=== PATIENT | female | born 1995 | race Caucasian/White ===

== ENCOUNTER 2021-06-19 14:16 | Emergency (ER) | payer MEDICAID, SELFPAY ==
[2021-06-20 14:54] LABS: SARS-CoV-2 PCR by NAA Not Detected (NotDetected)
== END 2021-06-19 15:25 | disposition home or self-care (01) ==
LOC: NAV ERS 14:16
DX: R09.81 Nasal congestion (principal); Z20.822 Contact with and (suspected) exposure to COVID-19
CPT/HCPCS: 99283; U0003; U0005

== ENCOUNTER 2024-05-16 21:52 | Emergency (ER) | payer BC, SELFPAY ==
[2024-05-16] MEDS ORDERED: Orphenadrine Citrate 60 MG/2 ML VIAL ONE (22:15)
== END 2024-05-16 23:31 | disposition home or self-care (01) ==
LOC: NAV ERS 21:52
DX: S70.02XA Contusion of left hip, initial encounter (principal); M54.50 Low back pain, unspecified; W09.8XXA Fall on or from other playground equipment, initial encounter
CPT/HCPCS: 72100; 96372; J2360